=== PATIENT | female | born 1990 | race African-American/Black ===

== ENCOUNTER 2016-07-21 22:04 | Emergency (ER) | payer OTHER ==
[2016-07-22] MEDS ORDERED: KETOROLAC 60 MG/2 ML VIAL IM ONE (00:37)
== END 2016-07-22 01:26 | disposition home or self-care (01) ==
LOC: ER 22:04
DX: N93.8 Other specified abnormal uterine and vaginal bleeding (principal); R10.2 Pelvic and perineal pain
CPT/HCPCS: 36415; 80048; 81003; 84703; 85025; 87491; 87591; 87800; 96372